=== PATIENT | female | born 1995 | race Caucasian/White ===

== ENCOUNTER 2019-11-28 16:34 | Emergency (ER) | payer OTHER, SELFPAY ==
[2019-11-28 16:51] VITALS: BP 128/91; PULSE 91; RESP 20; TEMP 37.1; O2SAT 100
[2019-11-28 17:06] LABS: Basophils Percent Auto 0.4 % (0.2-1.2); Eosinophils Absolute Auto 0.1 K/mm3 (0-0.3); Eosinophils Percent Auto 1.3 % (0-4.4); Hematocrit 39.1 % (37.0-47.0); Hemoglobin 12.5 g/dL (12.0-15.0); Immature Granulocyte Absolute 0.01 K/mm3 (0.00-0.031); Immature Granulocyte Percent A 0.1 % (0-0.5); Lymphocytes Absolute Auto 1.76 K/mm3 (0.9-3.2); Lymphocytes Percent Auto 24.5 % (18.3-44.2); Mean Corpuscular Hemoglobin 27.2 pg (26-34); Mean Corpuscular Volume 85.2 fl (80-100); Mean Platelet Volume 9.9 fl (7.4-10.4); Monocytes Absolute Auto 0.4 K/mm3 (0.1-0.6); Monocytes Percent Auto 5.7 % (2.6-8.5); Neutrophils Absolute Auto 4.9 K/mm3 (1.3-6.7); Platelet Count Result 263 k/mm3 (150-375); Red Blood Count 4.59 M/mm3 (4.2-5.4); Red Cell Distribution Width 13.4 % (11.5-14.5); White Blood Count 7.2 K/mm3 (4.5-10.0)
[2019-11-28 17:22] LABS: Alanine Aminotransferase 17 U/L (4-35); Alkaline Phosphatase 79 U/L (38-126); Aspartate Amino Transferase 24 U/L (14-36); Bilirubin,Total 0.1 mg/dL (0.2-1.3); Blood Urea Nitrogen 14 mg/dL (7-17); Calcium 8.7 mg/dL (8.4-10.2); Carbon Dioxide 22 mmol/L (22-30); Chloride 103 mmol/L (98-107); Estimated Glomerular Filt Rate > 60; Glucose 98 mg/dL (65-105); Lipase 100 U/L (23-300); Potassium 3.9 mmol/L (3.4-5.0); Sodium 139 mmol/L (137-145)
[2019-11-28 17:22] LABS: Add Urine Microscopic? YES; Appearance Urine Clear (Clear); Bilirubin Urine Negative (Negative); Blood Urine 1+ (Negative); Color Urine Straw (Yellow); Glucose Urine UA Negative (Negative); Ketones Urine Negative (Negative); Leukocyte Esterase Ur Trace LEU/UL (Negative); Nitrate Urine Negative (Negative); Protein Urine Negative (Negative); RBC Urine 0-2 /hpf (0-2); Specific Grav Ur 1.016 (1.001-1.035); Squamous Epithelial Cell Urine Moderate /hpf (Few); Urobilinogen Urine Negative mg/dL (<2.0); WBC Urine 0-3 /hpf
--- NOTE | 2019-11-28 20:30 | PC.NURSE ---
Pt up to intake desk stating she is going to leave due to wait time. Pt left ED with a steady gait.
== END 2019-11-28 20:30 | disposition left against medical advice (07) ==
LOC: ANHED 20:39
PROVIDERS: Emergency Provider General Practice; PCP Obstetrics & Gynecology
DX: R10.9 Unspecified abdominal pain (principal)
CPT/HCPCS: 36415; 80053; 81001; 81025; 83690; 85025; 99199

== ENCOUNTER 2019-11-30 20:50 | Emergency (ER) | payer OTHER, SELFPAY ==
[2019-11-30 21:23] VITALS: BP 129/90; PULSE 92; RESP 18; TEMP 36.3; O2SAT 99
[2019-11-30 21:24] LABS: Basophils Percent Auto 0.5 % (0.2-1.2); Eosinophils Absolute Auto 0.1 K/mm3 (0-0.3); Hematocrit 38.8 % (37.0-47.0); Hemoglobin 12.4 g/dL (12.0-15.0); Immature Granulocyte Absolute 0.02 K/mm3 (0.00-0.031); Immature Granulocyte Percent A 0.3 % (0-0.5); Lymphocytes Absolute Auto 2.01 K/mm3 (0.9-3.2); Lymphocytes Percent Auto 27.5 % (18.3-44.2); Mean Corpuscular Hemoglobin 27.3 pg (26-34); Mean Corpuscular Volume 85.3 fl (80-100); Mean Platelet Volume 9.9 fl (7.4-10.4); Monocytes Absolute Auto 0.4 K/mm3 (0.1-0.6); Neutrophils Absolute Auto 4.7 K/mm3 (1.3-6.7); Neutrophils Percent Auto 64.7 % (45.5-73.1); Platelet Count Result 269 k/mm3 (150-375); Red Blood Count 4.55 M/mm3 (4.2-5.4); Red Cell Distribution Width 13.2 % (11.5-14.5); White Blood Count 7.3 K/mm3 (4.5-10.0)
[2019-11-30 21:37] LABS: Alanine Aminotransferase 19 U/L (4-35); Albumin Level 4.2 g/dL (3.5-5.1); Alkaline Phosphatase 82 U/L (38-126); Aspartate Amino Transferase 25 U/L (14-36); Bilirubin,Total 0.2 mg/dL (0.2-1.3); Blood Urea Nitrogen 16 mg/dL (7-17); Carbon Dioxide 23 mmol/L (22-30); Chloride 104 mmol/L (98-107); Estimated Glomerular Filt Rate > 60; Glucose 108 mg/dL (65-105); Lipase 87 U/L (23-300); Potassium 3.9 mmol/L (3.4-5.0); Sodium 139 mmol/L (137-145)
[2019-11-30 21:58] LABS: Add Urine Microscopic? YES; Appearance Urine Clear (Clear); Bacteria Urine Trace /hpf; Bilirubin Urine Negative (Negative); Blood Urine 1+ (Negative); Color Urine Yellow (Yellow); Glucose Urine UA Negative (Negative); Ketones Urine Negative (Negative); Leukocyte Esterase Ur Negative LEU/UL (Negative); Mucus Urine Rare /lpf; Nitrate Urine Negative (Negative); Protein Urine Negative (Negative); Specific Grav Ur 1.016 (1.001-1.035); Squamous Epithelial Cell Urine Rare /hpf (Few); Urobilinogen Urine Negative mg/dL (<2.0); WBC Urine 0-3 /hpf
--- NOTE | 2019-11-30 22:16 | ED.ABDPAIN ---
HPI - Abdominal Pain General Chief Complaint: Abdominal Pain Stated Complaint: ABD PAIN Time Seen by Provider: 11/30/19 22:02 Source: patient and RN notes reviewed Mode of arrival: ambulatory Limitations: no limitations History of Present Illness HPI narrative: Pt is a 24 y/o female, who presents to the ED with c/o worsening lt lower ABD pain starting 3 days ago. She also reports intermittent low back pain over the past several days and vaginal discharge, but denies any nausea, vomiting, diarrhea, vaginal bleeding or discharge, fever, or chills. Pt currently denies any chance of being . MD elicited complaint: abdominal pain Pertinent past history: other (PID) Onset (ago): day(s) (3) Pain Consistency: other (worsening) Location: other (lt lower ABD) Associated symptoms: other (low back pain; vaginal discharge) Related Data Patient : No Home Medications Medication Instructions Recorded Confirmed cariprazine [Vraylar] 1.5 mg PO DAILY 11/30/19 fluoxetine [Prozac] 40 mg PO DAILY 11/30/19 lamotrigine 150 mg PO DAILY 11/30/19 levothyroxine 100 mcg PO DAILY 11/30/19 trazodone 150 mg PO HS 11/30/19 Allergies Allergy/AdvReac Type Severity Reaction Status Date / Time No Known Allergies Allergy Unknown Verified 11/30/19 21:27 No Known Allergies Allergy Unknown Uncoded 11/30/19 21:27 Review of Systems Review of Systems: All systems reviewed & are unremarkable except as noted in HPI and below Constitutional: Constitutional: Denies chills and Denies fever(s) Gastrointestinal: Gastrointestinal: Reports abdominal pain (lt lower ABD pain), Denies diarrhea, Denies nausea and Denies vomiting Genitourinary: Genitourinary: Denies abnormal vaginal bleeding and Reports vaginal discharge Musculoskeletal: Musculoskeletal: Reports back pain (low back pain) [facility] Past Medical History Medical History (Updated 11/30/19 @ 22:34 by Yon Dahl MD) Anxiety Depression DVT (deep venous thrombosis) Hypothyroidism PID (pelvic inflammatory disease) Surgical History Surgical History Hx of appendectomy Family History Family History (Updated 02/09/17 @ 14:53 by DOCTOR UNKNOWN) Other Family history of seizure disorder Social History Social History Smoking status: Never smoker Alcohol intake: never Gender identity (if verbalized by the patient): Female Exam Const: General: cooperative, healthy appearing, comfortable, no acute distress, well developed, alert and awake; No confusion Nutritional Appearance: obese Orientation/consciousness: oriented to person, oriented to place, oriented to time, patient oriented x3 and No confusion Limitations: no limitations HENMT: Head: normal to inspection, normocephalic and atraumatic Resp: Effort & Inspection: normal respiratory effort, able to speak in complete sentences, no respiratory distress and not tachypneic Auscultation: clear to auscultation bilaterally, no crackles, no rales, no rhonchi and no wheezes Cardio: Rate: regular rate Rhythm: regular rhythm GI: Inspection: normal to inspection GI Palp: No abdominal tenderness, Yes Soft to palpation, No Tenderness to palpation present (GI), No Guarding due to palpation present (GI), No Rigid due to palpation and No Rebound tenderness present Auscultation: normal bowel sounds : General: Yes no CVA tenderness Back/Spine/Pelvis: Back: no CVA tenderness Skin: General skin exam: normal color, no rashes or lesions noted, elasticity normal and turgor normal Neuro: General: oriented to person, oriented to place, oriented to time, patient oriented x3, tone normal, moves all extremities, Normal light touch and pain sensation, no meningeal signs, no focal motor deficits, CN's II-XI intact bilaterally and No confusion Cranial nerves: Yes Equal, round and reactive pupils present Speech: No Abnormal speech prese
[2019-11-30] MEDS: KETOROLAC 30 MG/ML VIAL (*BKC) IV PUSH (23:07)
[2019-11-30 23:48] VITALS: BP 121/78; PULSE 71; RESP 12; O2SAT 100
== END 2019-11-30 23:35 | disposition home or self-care (01) ==
PROVIDERS: Emergency Medicine; Emergency Provider Emergency Medicine; PCP Obstetrics & Gynecology
DX: R10.32 Left lower quadrant pain (principal); F41.9 Anxiety disorder, unspecified; F32.9 Major depressive disorder, single episode, unspecified; Z87.891 Personal history of nicotine dependence; E03.9 Hypothyroidism, unspecified
CPT/HCPCS: 36415; 80053; 81001; 81025; 83690; 85025; 96374; 99284; J1885

== ENCOUNTER 2020-02-10 21:12 | Emergency (ER) | payer OTHER, SELFPAY ==
--- NOTE | ~2020-02-10 | CT_ITS ---
EXAMINATION: CT abdomen pelvis w con DATE: 02/10/2020 23:42 INDICATION: Lower abdominal pain TECHNIQUE: Computed tomography (CT) of the abdomen and pelvis was performed with 100 cc Omnipaque 350 intravenous contrast. The dose-length product was 1315.58 mGy-cm. Automated exposure control and ite rative reconstruction technique were employed. COMPARISON: CT dated 07/07/2019 FINDINGS: Lung bases are unremarkable. No significant pleural or pericardial effusion. Heart size is normal. No significant vascular abnormality. No lymphadenopathy. Status post cholecystectomy. The liver, spleen, pancreas, adrenal glands and kidneys are unremarkable . Bowel pattern is nonobstructive. No evidence for appendicitis or diverticulitis. No abnormal pelvic m asses or fluid collections. Small fat-containing umbilical hernia. There are hypodense masses of the uterus, possibly uterine fibroids. No acute osseous abnormality. IMPRESSION: 1. No acute abdominal abnormality. Reviewed, dictated and finalized at location A.
[2020-02-10 21:13] VITALS: BP 148/81; PULSE 98; RESP 20; TEMP 36.4; O2SAT 99
[2020-02-10 21:42] LABS: Basophils Percent Auto 0.2 % (0.2-1.2); Hematocrit 39.6 % (37.0-47.0); Hemoglobin 12.7 g/dL (12.0-15.0); Immature Granulocyte Absolute 0.08 K/mm3 (0.00-0.031); Immature Granulocyte Percent A 0.6 % (0-0.5); Lymphocytes Absolute Auto 2.67 K/mm3 (0.9-3.2); Lymphocytes Percent Auto 20.7 % (18.3-44.2); Mean Corpuscular HGB Conc 32.1 g/dl (32-36); Mean Corpuscular Hemoglobin 27.4 pg (26-34); Mean Corpuscular Volume 85.5 fl (80-100); Monocytes Absolute Auto 0.9 K/mm3 (0.1-0.6); Monocytes Percent Auto 6.9 % (2.6-8.5); Neutrophils Absolute Auto 9.2 K/mm3 (1.3-6.7); Neutrophils Percent Auto 71.6 % (45.5-73.1); Platelet Count Result 328 k/mm3 (150-375); Red Blood Count 4.63 M/mm3 (4.2-5.4); Red Cell Distribution Width 13.9 % (11.5-14.5); White Blood Count 12.9 K/mm3 (4.5-10.0)
[2020-02-10 21:46] LABS: Add Urine Microscopic? YES; Appearance Urine Clear (Clear); Bilirubin Urine Negative (Negative); Blood Urine 1+ (Negative); Color Urine Straw (Yellow); Glucose Urine UA Negative (Negative); Ketones Urine Negative (Negative); Leukocyte Esterase Ur Trace LEU/UL (Negative); Mucus Urine Rare /lpf; Nitrate Urine Negative (Negative); Protein Urine Negative (Negative); Specific Grav Ur 1.019 (1.001-1.035); Squamous Epithelial Cell Urine Many /hpf (Few)
[2020-02-10 21:53] LABS: Alanine Aminotransferase 20 U/L (4-35); Albumin Level 4.2 g/dL (3.5-5.1); Alkaline Phosphatase 87 U/L (38-126); Aspartate Amino Transferase 24 U/L (14-36); Bilirubin,Total 0.3 mg/dL (0.2-1.3); Blood Urea Nitrogen 16 mg/dL (7-17); Calcium 8.4 mg/dL (8.4-10.2); Carbon Dioxide 24 mmol/L (22-30); Chloride 104 mmol/L (98-107); Estimated Glomerular Filt Rate > 60; Glucose 94 mg/dL (65-105); Lipase 123 U/L (23-300); Potassium 4.1 mmol/L (3.4-5.0); Sodium 136 mmol/L (137-145)
--- NOTE | 2020-02-10 22:30 | ED.ABDPAIN ---
HPI - Abdominal Pain General Chief Complaint: Abdominal Pain Stated Complaint: lower abd pain Time Seen by Provider: 02/10/20 21:32 Source: patient Mode of arrival: ambulatory Limitations: no limitations History of Present Illness HPI narrative: Patient is a 24-year-old female who presents to the emergency department complaint of lower abdominal pain. Patient reports onset of pain approximately 3 weeks ago. Patient locates the pain in the lower abdomen with a preference towards the left lower quadrant. Patient was seen in the emergency department at [place] and told she had a UTI and treated with antibiotics. Patient has continued to have pain despite completing antibiotics. Patient has had tele-health visits with her primary care physician Dr. Miller and her proof coins inspector Dr. Swanson. She had been treated with a course of steroids, though it is not quite clear to me what the diagnosis indicating steroids was. Patient is frustrated because she feels as though no diagnosis has been achieved and she is still symptomatic. Patient complains of dysuria and hematuria as well. MD elicited complaint: abdominal pain Onset (ago): week(s) (3) Location: LLQ and suprapubic Relieving factors: nothing Associated symptoms: dysuria and hematuria Related Data Home Medications Medication Instructions Recorded Confirmed cariprazine [Vraylar] 1.5 mg PO DAILY 11/30/19 fluoxetine [Prozac] 40 mg PO DAILY 11/30/19 lamotrigine 150 mg PO DAILY 11/30/19 levothyroxine 100 mcg PO DAILY 11/30/19 trazodone 150 mg PO HS 11/30/19 Allergies Allergy/AdvReac Type Severity Reaction Status Date / Time No Known Allergies Allergy Unknown Verified 11/30/19 21:27 No Known Allergies Allergy Unknown Uncoded 11/30/19 21:27 Review of Systems Review of Systems: All systems reviewed & are unremarkable except as noted in HPI and below Constitutional: Constitutional: Denies chills and Denies fever(s) Gastrointestinal: Gastrointestinal: Reports abdominal pain Genitourinary: Genitourinary: Reports hematuria and Reports dysuria PMF Past Medical History Medical History (Updated 02/11/20 @ 01:46 by Kandis Orosco MD) Anxiety Depression DVT (deep venous thrombosis) Hypothyroidism PID (pelvic inflammatory disease) Surgical History Surgical History (Updated 02/10/20 @ 22:32 by Kandis Orosco MD) History of cataract surgery History of cholecystectomy History of tubal ligation Hx of appendectomy Family History Family History (Updated 02/09/17 @ 14:53 by DOCTOR UNKNOWN) Other Family history of seizure disorder Social History Social History (Updated 02/10/20 @ 22:32 by Kandis Orosco MD) Smoking status: Former smoker Gender identity (if verbalized by the patient): Female Exam Const: General: cooperative, no acute distress and alert Nutritional Appearance: obese Orientation/consciousness: patient oriented x3 Limitations: no limitations Resp: Effort & Inspection: normal respiratory effort Auscultation: clear to auscultation bilaterally Cardio: Rate: regular rate Rhythm: regular rhythm GI: GI Palp: Yes Soft to palpation and Yes Tenderness to palpation present (GI) (Suprapubic and left lower quadrant) Auscultation: normal bowel sounds Back/Spine/Pelvis: Back: no CVA tenderness Skin: General skin exam: normal color Neuro: General: patient oriented x3 Cognition (Neuro): normal cognition Speech: normal speech Extrem: General: normal to inspection, full ROM and no clubbing, cyanosis or edema Psych: Mental Status: mental status grossly normal Affect: normal affect Attitude: cooperative Course Course Emergency Course: Testing in the emergency department unremarkable for any cause of patient's pain. Vital signs are stable and patient is very comfortable in appearance. Symptoms have been going on for a couple of weeks and patient is stable for ongoing outpatient management at this time. Advised import
[2020-02-10] MEDS: KETOROLAC 30 MG/ML VIAL (*BKC) IV PUSH (23:45)
[2020-02-10 23:46] VITALS: BP 126/91; PULSE 76; RESP 19; O2SAT 97
[2020-02-11 00:50] VITALS: BP 124/87; PULSE 75; RESP 17; O2SAT 96
[2020-02-11] MEDS: ACETAMINOPHEN 500 MG TABLET 1000 MG PO (01:26)
[2020-02-11 02:00] VITALS: BP 127/88; PULSE 88; RESP 17; O2SAT 97
== END 2020-02-11 02:00 | disposition home or self-care (01) ==
PROVIDERS: Emergency Provider Emergency Medicine; PCP Obstetrics & Gynecology
DX: R10.30 Lower abdominal pain, unspecified (principal); F41.9 Anxiety disorder, unspecified; F32.9 Major depressive disorder, single episode, unspecified; Z86.718 Personal history of other venous thrombosis and embolism; E03.9 Hypothyroidism, unspecified; Z98.49 Cataract extraction status, unspecified eye; Z87.891 Personal history of nicotine dependence
CPT/HCPCS: 36415; 74177; 80053; 81001; 81025; 83690; 85025; 96374; 99284; A9270; J1885; Q9967

== ENCOUNTER 2023-07-12 13:42 | Emergency (ER) | payer OTHER, SELFPAY ==
--- NOTE | ~2023-07-12 | XR_ITS ---
EXAMINATION: XR chest 1V portable Exam Date/Time: 07/12/2023 15:20 CDT HISTORY: productive cough Comparison: 10/13/2018. RESULT: Lines, tubes, and devices: None. Lungs and pleura: Clear. Cardiomediastinal silhouette: Stable. Other: No acute osseous or upper abdominal finding. IMPRESSION: No acute cardiopulmonary process. Reviewed, dictated and finalized at location K.
[2023-07-12 13:52] VITALS: BP 145/82; PULSE 77; RESP 18; TEMP 36.8; O2SAT 100
[2023-07-12 14:24] VITALS: O2SAT 100
--- NOTE | 2023-07-12 15:19 | ED.GENADULT ---
[facility] - General Adult General Chief complaint: Upper Respiratory Infection Stated complaint: Multiple Complaints Time Seen by Provider: 07/12/23 14:51 Source: patient Mode of arrival: ambulatory Limitations: no limitations History of Present Illness HPI narrative: This is a 27-year-old female who presents to the ED with chief complaint of URI symptoms for the past 2 days. Reports cough, congestion, runny nose, sore throat and ear fullness bilaterally. Reports shortness of breath as well. She states she has a history of asthma and feels like this may be flared up as well. Reports chest tightness only occurring when she coughs. Reports her cough has been productive with over the last day. Denies fevers, chills, abdominal pain, nausea, vomiting, urinary problems. Related Data Home Medications Medication Instructions Recorded Confirmed cariprazine 1.5 mg capsule 1.5 mg PO DAILY 11/30/19 (Vraylar) fluoxetine 40 mg capsule (Prozac) 40 mg PO DAILY 11/30/19 lamotrigine 150 mg tablet 150 mg PO DAILY 11/30/19 levothyroxine 100 mcg capsule 100 mcg PO DAILY 11/30/19 trazodone 150 mg tablet 150 mg PO HS 11/30/19 Allergies Allergy/AdvReac Type Severity Reaction Status Date / Time No Known Allergies Allergy Unknown Verified 07/12/23 13:55 Review of Systems Review of Systems: All systems as dictated in [facility] Past Medical History Medical History (Updated 07/12/23 @ 17:01 by Pee Darden PA-C) Anxiety Depression DVT (deep venous thrombosis) Hypothyroidism PID (pelvic inflammatory disease) Surgical History Surgical History (Updated 03/31/22 @ 16:05 by Nikita Gallegos) History of cataract surgery History of cholecystectomy History of tubal ligation Hx of appendectomy Family History Family History (System 03/31/22 @ 16:05 by Nikita Gallegos) Other Family history of seizure disorder Social History Social History (System 03/31/22 @ 16:05 by Nikita Gallegos) Smoking status: Former smoker Gender identity (if verbalized by the patient): Female Exam Narrative: GENERAL: Well-appearing, well-nourished, and in no acute distress. HEAD: Normocephalic, atraumatic. EYES: PERRLA and EOMI. ENT: Posterior oropharynx erythema present. Bilateral tympanic effusion with no redness or injection. No bulging. Nares clear, no rhinorrhea or epistaxis. Mucous membranes moist. Oropharynx without tonsillar hypertrophy exudate or other lesions. NECK: Supple. No adenopathy or masses. CHEST: No respiratory distress. Mild expiratory diffuse wheezing. Talks in full sentences. Saturating 100% on room air. HEART: Regular rate and rhythm. No murmur heard. Normal peripheral pulses. ABDOMEN: Soft, nontender, nondistended, normal active bowel sounds. MSK: Normal range of motion. No edema. SKIN: Warm, dry, no rash. NEURO: Alert and oriented x3. No focal deficits. PSYCH: Normal mood and affect. Course Course Emergency Course: Reevaluation 1700: Wheezing improved. She feels symptomatically improved as well. She would like to go home. Vital Signs Vital signs: Vital Signs Temperature 98.3 F 07/12/23 13:52 Pulse Rate 77 07/12/23 13:52 Respiratory Rate 18 07/12/23 13:52 Blood Pressure 145/82 H 07/12/23 13:52 Pulse Oximetry 100 07/12/23 13:52 Oxygen Delivery Room Air 07/12/23 13:52 Temperature 98.3 F 07/12/23 13:52 Pulse Rate 100 07/12/23 17:00 Respiratory Rate 20 07/12/23 17:00 Blood Pressure 145/82 H 07/12/23 13:52 Pulse Oximetry 100 07/12/23 14:24 Oxygen Delivery Room Air 07/12/23 14:24 Medical Decision Making [facility] Narrative Medical decision making narrative: This is a 27-year-old female who presents to the ED with chief complaint of URI symptoms for the past several days. Vitals are normal. Exam is revealing of posterior oropharynx erythema and tympanic membrane effusions. She has diffuse wheezes as well. Otherwise exam is benign. She has history of DVT
[2023-07-12] MEDS: ALBUTEROL SULFATE NEB 2.5 MG/3 ML INH 10 MG INHALATION (15:28)
[2023-07-12] MEDS: IPRATROPIUM BR 0.02% INH SOLN 0.5 MG/2.5 ML VIAL 1 MG INHALATION (15:29)
[2023-07-12 15:33] VITALS: PULSE 69; RESP 20
[2023-07-12 16:33] LABS: Influenza A QL RT-PCR Negative (Negative); Influenza B QL RT-PCR Negative (Negative); RSV RNA, RT-PCR Negative (Negative); SARS-CoV-2 RNA PCR Negative (Negative)
[2023-07-12 17:00] VITALS: PULSE 100; RESP 20
== END 2023-07-12 17:12 | disposition home or self-care (01) ==
PROVIDERS: Emergency Provider Physician Assistant; PCP Internal Medicine
DX: J40 Bronchitis, not specified as acute or chronic (principal); J06.9 Acute upper respiratory infection, unspecified; Z20.822 Contact with and (suspected) exposure to COVID-19; E03.9 Hypothyroidism, unspecified; F41.9 Anxiety disorder, unspecified; F32.A Depression, unspecified; Z98.49 Cataract extraction status, unspecified eye; Z86.718 Personal history of other venous thrombosis and embolism; Z87.891 Personal history of nicotine dependence; Z90.49 Acquired absence of other specified parts of digestive tract
CPT/HCPCS: 71045; 87637; 94640; 99283

== ENCOUNTER 2024-05-08 14:39 | Emergency (ER) | payer OTHER, SELFPAY ==
[2024-05-08 15:00] VITALS: BP 140/99; PULSE 84; RESP 18; TEMP 36.9; O2SAT 100
--- NOTE | 2024-05-08 15:13 | ED.WOUNDLAC ---
HPI - Wound/Laceration General Chief Complaint: Extremity Injury, Upper Stated Complaint: left wrist laceration Time Seen by Provider: 05/08/24 15:12 Source: patient Mode of arrival: ambulatory Limitations: no limitations History of Present Illness HPI narrative: Chandrika is a 28-year-old female patient presenting to the emergency room today with complaints of a laceration to left wrist that she cut on a can when she was opening up a can. She states that her tetanus is not up today. Bleeding is controlled. Related Data Home Medications Medication Instructions Recorded Confirmed cariprazine 1.5 mg capsule 1.5 mg PO DAILY 11/30/19 (Vraylar) fluoxetine 40 mg capsule (Prozac) 40 mg PO DAILY 11/30/19 lamotrigine 150 mg tablet 150 mg PO DAILY 11/30/19 levothyroxine 100 mcg capsule 100 mcg PO DAILY 11/30/19 trazodone 150 mg tablet 150 mg PO HS 11/30/19 Allergies Allergy/AdvReac Type Severity Reaction Status Date / Time No Known Allergies Allergy Unknown Verified 05/08/24 15:03 Review of Systems Review of Systems: Pertinent positives per HPI. Patient denies any fever, chills, rash, headache, visual changes, dizziness, cough, runny nose, sore throat, shortness of breath, chest pain, palpitations, nausea, vomiting, diarrhea, constipation, abdominal pain, or any urinary issues. [facility] Past Medical History Medical History Anxiety Depression DVT (deep venous thrombosis) Hypothyroidism PID (pelvic inflammatory disease) Surgical History Surgical History History of cataract surgery History of cholecystectomy History of tubal ligation Hx of appendectomy Family History Family History Other Family history of seizure disorder Social History Social History Smoking status: Former smoker Gender identity (if verbalized by the patient): Female Comments At the time of my signature, I reviewed and agree with the nursing past medical, surgical, social, and family history. There is no relevant family history pertinent to the patient complaint. Exam Narrative: General: Well-developed, well nourished, in no apparent distress Head: Normocephalic, atraumatic. Cardio: Regular rate and rhythm, s1 and s2 normal, no murmur appreciated. Resp: Clear to auscultation bilaterally, no rhonchi, rales, wheezing or rubs. Integumentary: [place], warm, and dry, mild gaping 1.5 cm laceration to the left volar wrist Course Course Emergency Course: Portions of this record may have been created with voice recognition software. Vital Signs Vital signs: Vital Signs Temperature 36.9 C 05/08/24 15:00 Pulse Rate 84 05/08/24 15:00 Respiratory Rate 18 05/08/24 15:00 Blood Pressure 140/99 H 05/08/24 15:00 Pulse Oximetry 100 05/08/24 15:00 Oxygen Delivery Room Air 05/08/24 15:00 Temperature 36.9 C 05/08/24 15:00 Pulse Rate 84 05/08/24 15:00 Respiratory Rate 18 05/08/24 15:00 Blood Pressure 140/99 H 05/08/24 15:00 Pulse Oximetry 100 05/08/24 15:00 Oxygen Delivery Room Air 05/08/24 15:00 Vital signs reviewed Procedures Laceration Laceration 1: Date: 05/08/24 Site: other (left wrist) Side (If applicable): left Size (cm): 1.5 Description: linear Depth: simple, single layer Local Anesthetic: lidocaine 1% Amount of anesthesia used (mL): 1 Pre-repair: wound explored and irrigated ====== Skin Level ====== Skin layer closed with: nylon Size (cm): 5-0 Number of sutures: 3 Technique: simple, interrupted ====== Subcutaneous Layer ====== ====== Muscle Layer ====== ====== Tendon Layer ====== Dressing: Verbal consent obtained for jonathan
[2024-05-08] MEDS: TETANUS,DIPHTHERIA,AC PERTUSSIS ADULT (0.5 ML) BOOSTRIX IM (15:59)
== END 2024-05-08 16:16 | disposition home or self-care (01) ==
LOC: ANHED 16:09
PROVIDERS: Emergency Provider Nurse Practitioner Family; PCP Internal Medicine
DX: S61.512A Laceration without foreign body of left wrist, initial encounter (principal); Z23 Encounter for immunization; E03.9 Hypothyroidism, unspecified; F41.9 Anxiety disorder, unspecified; F32.A Depression, unspecified; Z86.718 Personal history of other venous thrombosis and embolism; Z87.891 Personal history of nicotine dependence; Z90.49 Acquired absence of other specified parts of digestive tract; Z98.49 Cataract extraction status, unspecified eye; Z79.899 Other long term (current) drug therapy; W26.8XXA Contact with other sharp object(s), not elsewhere classified, initial encounter
CPT/HCPCS: 12001; 90471; 90715; 99283

== ENCOUNTER 2025-04-14 13:19 | Emergency (ER) | payer SELFPAY ==
[2025-04-14] VITALS (7 sets, daily range): BP systolic 108–145; BP diastolic 64–110; PULSE 80–130; RESP 14–18; TEMP 36.5–36.6; O2SAT 97–100
--- NOTE | ~2025-04-14 | CT_ITS ---
CT brain wo con Ordering provider: Linden Pineda MD History: 29 years Female with . Dizziness . Comparison: July 13, 2019 Technique: CT of the head without contrast. Radiation reduction technique utilized.The dose-length pr oduct was 605.33 mGy-cm. FINDINGS: BRAIN PARENCHYMA AND CSF SPACES: No midline shift, mass effect or hemorrhage. The brain parenchyma a nd CSF spaces are otherwise normal. VISUALIZED PARANASAL SINUSES: Bilateral maxillary, sphenoid and ethmoid sinus disease. Right nasal se ptal deviation. MASTOIDS: Well aerated. BONES: The bones appear intact. SOFT TISSUES: Visualized nasopharynx is normal. Superficial soft tissues are normal. IMPRESSION: No acute intracranial findings. Reviewed, dictated and finalized at location A.
--- NOTE | ~2025-04-14 | XR_ITS ---
XR chest 1V portable Ordering provider: Linden Pineda MD History: 29 years Female with . Coughing, sinus congestion, wheezing . Comparison: None. FINDINGS: MEDIASTINUM: The cardiac silhouette is not enlarged. LUNGS: No infiltrates, effusions or pneumothorax. Prominent bronchovascular markings bilaterally which may indicate bronchitis. Vague opacity in the ri ght upper lobe. OTHER: No free air under the diaphragm. IMPRESSION: Possible bronchitis. Vague opacity in the right upper lobe which may be focal pneumonia versus secretions filled bronchi. Follow-up advised. Reviewed, dictated and finalized at location A. IMPRESSION: Possible bronchitis. Vague opacity in the right upper lobe which may be focal pneumonia versus secre tions filled bronchi. Follow-up advised.
--- OUTSIDE RECORDS SUMMARY | 2025-04-14 13:22 | XMS_ITS | Continuity of Care Document ---
Author Organization [facility] Address [address] [place] [address] [address] [place] [address] Phone Care Team Providers Care Elevated Work Platform Operator Name Role Phone Roxanna Nolan Unavailable Unavailable Advance Directives Directive Yes / No Effective Date File Name No Information Encounters Encounter Description Practice Location Reason(s) For Visit Diagnoses Date Provider Providers Copied on Encounter [facility], [address] [place] [address] [address], [place], [place], [id number], [place] tel:[phone] [facility] [place] No Information [phone] , [address], [place], [address], [place]. tel:[phone] Family History Family Member Type Diagnosis Age At Onset No Information Payers Payer name Insurance type Covered republican ID Authoriza tion(s) Medicaid [facility] [id number] Social History Type Description Quantity Date Captured Comments Sex Female Smoking Status No Information Chief Complaint And Reason For Visit No Information Reason For Referral Reason For Referral No Information History Of Present Illness Encounter Date Complaint History Of Prese nt Illness No Information Functional Status Date Functional Assessmen t No Information Instructions Date Instruction Additional Infor mation No Information Assessments Type Assessment Date No Information Patient Care Teams Name Effective Dates (start - stop) Status Members No Information
--- OUTSIDE RECORDS SUMMARY | 2025-04-14 13:22 | XMS_ITS | Clinical Summary ---
Author Organization [facility] Address [address] [place] [address] Care Team Providers Care Special Collections Librarian Name Role Phone Unavailable Primary Care Provider Unavailabl e Immunizations Immunization Administration Dates Next Due Covid-19, Mrna, Lnp-s, Pf, 30 Mcg/0.3 Ml Dose (P fizer) 10/31/2021 Social History Tobacco Use Types Packs/Day Years Used Date Smoking Tobacco: Never Assessed Comments Unknown Sex and Gender Information Value Date Recorded Sex Assigned at Not on file Legal Sex Female 7:45 AM CDT Gender Identity Not on file Sexual Orientation Not on file Plan of Treatment Health Maintenance Due Date Last Done Comments Hepatitis C Virus (HCV) Screening 1995 Human Papillomavirus (HPV) Immunization (3 - 2-dose series) 08/19/2008 04/20/2008, 02/17/2008 SARS-COV-2 Immunization ( season) 2024 10/31/2021, 02/17/2021, 01/27/2021 Influenza Immunization (Season Ended) 2025 10/16/2018, 07/31/2008 Respiratory Syncytial Virus (RSV) Immunization (Adult) (1 - 1-dose 75+ series) 2069 Hepatitis B Immunization Completed 995, 1994, 1994 DTaP/Tdap/Td Immunization Discontinued 2009, 06/01/2000, 01/19/1996, Additional history exists TdaP Immunization Completed 08/01/2010 Meningococcal Immunization (ACWY) Aged Out No longer eligible based on patient's age to complete this topic Pneumococcal Immunization Combined Aged Out No longer eligible based on patient's age to complete this topic Rotavirus Immunization Aged Out No lo nger eligible based on patient's age to complete this topic
[2025-04-14 13:59] LABS: Hematocrit 36.1 % (37.0-47.0); Hemoglobin 11.7 g/dL (12.0-15.0); Immature Granulocyte Percent A 0.4 % (0-0.5); Lymphocytes Absolute Auto 1.12 K/mm3 (0.9-3.2); Mean Corpuscular HGB Conc 32.4 g/dl (32-36); Mean Corpuscular Hemoglobin 27.6 pg (26-34); Mean Corpuscular Volume 85.1 fl (80-100); Nucleated Red Blood Cells Absolute Auto 0.000 K/mm3 (0.0-0.012); Nucleated Red Blood Cells Perc 0.0 % (0.0-0.2); Platelet Count Result 243 k/mm3 (150-375); Red Blood Count 4.24 M/mm3 (4.2-5.4); White Blood Count 8.3 K/mm3 (4.5-10.0)
[2025-04-14 14:00] LABS: BEDSIDEPREGUCG Negative (Negative)
[2025-04-14] MEDS: SODIUM CHLORIDE 0.9% IV 1,000 ML 999 ML (14:00)
--- OUTSIDE RECORDS SUMMARY | 2025-04-14 14:02 | XMS_ITS | Clinical Summary ---
Author Organization [facility] Address [address] [place] [address] Care Team Providers Care Telegraph Plant Maintainer Name Role Phone Unavailable Primary Care Provider [...]
--- OUTSIDE RECORDS SUMMARY | 2025-04-14 14:02 | XMS_ITS | Continuity of Care Document ---
Author Organization [facility] Address [address] [place] [address] [address] [place] [address] Phone Care Team Providers Care Marine Plumber Name Role Phone Roxanna Nolan Unavailable Unavailable Advance Directives Directive Yes / No Effective Date File Name No Information Encounters Encounter Description Practice Location Reason(s) For Visit Diagnoses Date Provider Providers Copied on Encounter [facility], [address] [place] [address] [address], [place], [place], [id number], [place] tel:[phone] [facility] [place] No Information 0 [phone] [place] , [address], [place], [address], [place]. tel:[phone] Family History Family Member Type Diagnosis Age At Onset No Information Payers Payer name Insurance type Covered democrat ID Authoriza tion(s) Medicaid [facility] [id number] Social History Type Description Quantity Date Captured [...]
[2025-04-14 14:04] LABS: Add Urine Microscopic? YES; Appearance Urine Clear (Clear); Glucose Urine UA Negative (Negative); Leukocyte Esterase Ur Negative LEU/UL (Negative); Nitrate Urine Negative (Negative); Non Pathogenic Casts 0-2; Specific Grav Ur 1.025 (1.001-1.035)
[2025-04-14 14:09] LABS: Alanine Aminotransferase 27 U/L (6-35); Albumin Level 4.0 g/dL (3.5-5.1); Alkaline Phosphatase 79 U/L (38-126); Anion Gap 8 mmol/L (4-12); Aspartate Amino Transferase 34 U/L (14-36); Bilirubin,Total 0.3 mg/dL (0.2-1.3); Blood Urea Nitrogen 10 mg/dL (7-17); Calcium 8.6 mg/dL (8.4-10.2); Carbon Dioxide 23 mmol/L (22-30); Chloride 105 mmol/L (98-107); Estimated Glomerular Filt Rate > 60; Glucose 105 mg/dL (65-110); Potassium 4.0 mmol/L (3.4-5.0); Sodium 136 mmol/L (137-145); Total Protein 7.6 g/dL (6.3-8.2)
[2025-04-14 14:36] LABS: Influenza A QL RT-PCR Negative (Negative); Influenza B QL RT-PCR Negative (Negative); RSV RNA, RT-PCR Negative (Negative); SARS-CoV-2 RNA PCR Negative (Negative)
--- NOTE | 2025-04-14 14:47 | ED.DIZZY ---
HPI - Dizziness General Chief Complaint: Dizziness Stated Complaint: blurry vision, nausea Time Seen by Provider: 04/14/25 13:46 Source: patient History of Present Illness HPI Narrative: 29 years old white female drove herself to the emergency room complaining of sudden onset of dizziness everything was spinning moving, associated with nausea and vomiting. Patient is telling me that she been having nasal and postnasal discharge for a while, headache, productive cough and palpitation over the last few days. History of depression and anxiety, does not smoke, drinks occasionally, uses marijuana occasionally. Patient is telling me that she have chronic lower back pain slightly worse than before. She denies any chest pain or shortness of breath. Related Data Home Medications ?Medication ?Instructions ?Recorded ?Confirmed ?Last Taken ?Type cariprazine 1.5 mg capsule 1.5 mg PO DAILY 11/30/19 Unknown History (Vraylar) fluoxetine 40 mg capsule (Prozac) 40 mg PO DAILY 11/30/19 Unknown History lamotrigine 150 mg tablet 150 mg PO DAILY 11/30/19 Unknown History levothyroxine 100 mcg capsule 100 mcg PO DAILY 11/30/19 Unknown History trazodone 150 mg tablet 150 mg PO HS 11/30/19 Unknown History Allergies Allergy/AdvReac Type Severity Reaction Status Date / Time No Known Allergies Allergy Unknown Verified 05/08/24 15:03 Review of Systems Review of Systems: All systems reviewed & are unremarkable except as noted in HPI and below PMFSH Past Medical History Medical History Anxiety Depression PID (pelvic inflammatory disease) Hypothyroidism DVT (deep venous thrombosis) Surgical History Surgical History History of cataract surgery History of tubal ligation History of cholecystectomy Hx of appendectomy Family History Family History Other Family history of seizure disorder Social History Social History Smoking status: Former smoker Gender identity (if verbalized by the patient): Female Exam Narrative: General appearance: Well-developed, well-nourished Skin: Normal color Head: Normocephalic, nontraumatic Eyes: Clear conjunctiva ENT: Oropharynx normal, ears normal, nose normal Neck: Supple, nontender Chest and respiratory: Airway patent, no respiratory distress, no accessory muscle use Heart: Regular rate/rhythm Abdomen: Soft, nontender, no organomegaly, quiet bowel sounds Vascular: Normal peripheral pulses, normal capillary refill. Musculoskeletal: Normal range of motion, nontender back Neurologic: Alert and oriented ?3, SENIOR BI ARCHITECT is normal as tested, no gross motor deficit Course Vital Signs Vital signs: Vital Signs Temperature 36.6 C 04/14/25 14:04 Pulse Rate 130 H 04/14/25 14:04 Respiratory Rate 16 04/14/25 14:04 Blood Pressure 136/103 H 04/14/25 14:04 Pulse Oximetry 100 04/14/25 14:04 Oxygen Delivery Room Air 04/14/25 14:04 Temperature 36.6 C 04/14/25 17:34 Pulse Rate 84 04/14/25 17:34 Respiratory Rate 16 04/14/25 17:34 Blood Pressure 108/64 04/14/25 17:34 Pulse Oximetry 98 04/14/25 17:34 Oxygen Delivery Room Air 04/14/25 14:04 MDM - Dizziness MDM Narrative Medical decision making narrative: Patient came with dizziness Vital signs showing blood pressure 136/103, heart rate 130 otherwise within normal limit Physical examination showing anxious stressed patient, with diffuse tenderness at the lower back Differential diagnosis include benign positional vertigo, anxiety like symptoms, upper respiratory viral infection, electrolyte imbalance, dehydration Blood workup today includes CBC, CMP, showed no acute abnormality Patient tested negative for COVID flu RSV Urinalysis showed no evidence of infection Chest x-ray showed possible pneumonia CT head without contrast showed no acute abnormality Diagnosis vertigo, pneumonia Discharged on Antivert, Zofran and amoxicillin The pt was discharged to home.the pt,s condition upon discharge was fair,education was provided to the pt in reference to the final impression,discharge study results,treatment,prognosis and need for follow up . Differential Diagnosis Differential diagnosis: Likely other (As above) Medical Records Attestation: I reviewed the patient's medical records. Lab Data Attestation: I reviewed the patient's lab results. 04/14/25 13:51 04/14/25 13:51 Labs: Lab Results 04/14/25 04/14/25 Range/Units 13:51 13:58 WBC 8.3 (4.5-10.0) K/mm3 RBC 4.24 (4.2-5.4) M/mm3 Hgb 11.7 L (12.0-15.0) g/dL Hct 36.1 L (37.0-47.0) % MCV 85.1 (80-100) fl MCH 27.6 (26-34) pg MCHC 32.4 (32-36) g/dl RDW 13.9 (11.5-14.5) % Plt Count 243 (150-375) k/mm3 MPV 10.0 (7.4-10.4) fl Immature Gran % (Auto) 0.4 (0-0.5) % Neut % (Auto) 78.7 H (45.5-73.1) % Lymph % (Auto) 13.5 L (18.3-44.2) % [place] % (Auto) 5.9 (2.6-8.5) % Eos % (Auto) 1.1 (0-4.4) % Baso % (Auto) 0.4 (0.2-1.2) % Lymph # (Auto) 1.12 (0.9-3.2) K/mm3 [place] # (Auto) 0.5 (0.1-0.6) K/mm3 Eos # (Auto) 0.1 (0-0.3) K/mm3 Baso # (Auto) 0.0 (0.0-0.1) K/mm3 Abs Immat Gran (auto) 0.03 (0.00-0.031) K/mm3 Absolute Neuts (auto) 6.6 (1.3-6.7) K/mm3 Absolute Nucleated RBC 0.000 (0.0-0.012) K/mm3 Nucleated RBC % 0.0 (0.0-0.2) % Sodium 136 L (137-145) mmol/L Potassium 4.0 (3.4-5.0) mmol/L Chloride 105 (98-107) mmol/L Carbon Dioxide 23 (22-30) mmol/L Anion Gap 8 (4-12) mmol/L BUN 10 D (7-17) mg/dL Creatinine 0.69 L (0.7-1.0) mg/dL Estim Creat Clear Calc Not Reportable Estimated GFR > 60 (59 - ) Glucose 105 (65-110) mg/dL Calcium 8.6 (8.4-10.2) mg/dL Total Bilirubin 0.3 (0.2-1.3) mg/dL AST 34 (14-36) U/L ALT 27 (6-35) U/L Alkaline Phosphatase 79 (38-126) U/L Total Protein 7.6 (6.3-8.2) g/dL Albumin 4.0 (3.5-5.1) g/dL Urine Color Yellow (Yellow) Urine Appearance Clear (Clear) Urine pH 6.0 (5.0-9.0) Ur Specific [place] 1.025 (1.001-1.035) Urine Protein 1+ H (Negative) mg/dL Urine Glucose (UA) Negative (Negative) mg/dL Urine Ketones Trace H (Negative) mg/dL Ur Blood (Man) Negative (Negative) Urine Nitrate Negative (Negative) Urine Bilirubin Negative (Negative) Urine Urobilinogen 1.0 (<2.0) mg/dL Leukocyte Esterase Rfl Negative (Negative) NONA/UL Urine RBC 0-2 (0-2) /hpf Urine WBC 0-5 (0-3) /hpf Ur Squamous Epith Cells None seen (Few) /hpf Urine Bacteria None seen /hpf Urine Casts 0-2 POC Urine HCG, Qual Negative (Negative) Influenza A (RT-PCR) Negative (Negative) Influenza B (RT-PCR) Negative (Negative) RSV (RT-PCR) Negative (Negative) SARS-CoV-2 RNA (RT-PCR) Negative (Negative) Imaging Data Radiologist's impression: Impressions Chest X-Ray 04/14/25 15:15 IMPRESSION: Possible bronchitis. Vague opacity in the right upper lobe which may be focal pneumonia versus secretions filled bronchi. Follow-up advised. Head CT 04/14/25 15:23 IMPRESSION: No acute intracranial findings. Critical Care Time Critical Care Time Critical Care Time: No Discharge Plan Discharge Clinical Impression: Pneumonia, Vertigo Patient Disposition: Home Condition: Stable Instructions: Antibiotic Form, Vertigo (ED) Additional Instructions: Return if symptoms are worsening , call your family physician for appointment, take Tylenol as as needed for aches and pain, continue home medications. Patient Language: [place] Prescriptions: New amoxicillin 500 mg tablet 1,000 mg PO Q8H Qty: 42 0RF meclizine [Antivert] 25 mg tablet,chewable 25 mg PO TID Qty: 20 0RF ondansetron HCl 4 mg tablet 4 mg PO Q4H Qty: 10 0RF Rx Instructions: 1st dose 1-2 hr before radiation No Action fluoxetine [Prozac] 40 mg Capsule 40 mg PO DAILY lamotrigine 150 mg Tablet 150 mg PO DAILY trazodone 150 mg Tablet 150 mg PO HS levothyroxine 100 mcg Capsule 100 mcg PO DAILY Vraylar 1.5 mg Capsule 1.5 mg PO DAILY ibuprofen 800 mg tablet 800 mg PO TID PRN (Reason: pain) Qty: 15 0RF methylprednisolone [Medrol (Talat)] 4 mg tablets,dose pack See Rx Instructions .ROUTE .COMPLEX Qty: 21 0RF Rx Instructions: orally per package directions guaifenesin 200 mg tablet 200 mg PO Q6H PRN (Reason: cough) Qty: 30 0RF mupirocin 2 % ointment 1 applic topical BID 7 Days Qty: 22 0RF Follow-up/Referrals: Herbert Rodriguez MD [Primary Care Provider] - Stand Alone Forms: Work/School Release IP
[2025-04-14] MEDS: MECLIZINE HCL 25 MG TABLET PO (15:26)
[2025-04-14] MEDS: KETOROLAC 30 MG/ML VIAL (*BKC) IV PUSH (15:26)
[2025-04-14] MEDS: ONDANSETRON INJ 4 MG/2 ML VIAL IV PUSH (15:27)
== END 2025-04-14 17:57 | disposition home or self-care (01) ==
PROVIDERS: Emergency Medicine; Emergency Provider Emergency Medicine; PCP Internal Medicine
DX: J18.9 Pneumonia, unspecified organism (principal); R42 Dizziness and giddiness; Z20.822 Contact with and (suspected) exposure to COVID-19
CPT/HCPCS: 36415; 70450; 71045; 80053; 81001; 81025; 85025; 87637; 96374; 96375; 99284; A9270; J1885; J2405; J7030

== ENCOUNTER 2025-09-16 16:03 | Emergency (ER) | payer SELFPAY ==
--- NOTE | ~2025-09-16 | CT_ITS ---
Chandrika Frey EXAMINATION: CT abdomen pelvis w con COMPARISON: None HISTORY: abdominal abscess TECHNIQUE: Axial images were obtained through the abdomen, pelvis post administration of IV contrast. Oral contrast was also administered. Coronal reconstruction images were obtained from the axial views. CT scan performed using dose optimization techniques including the following automated exposure control; adjustment of mA and/or kV; use of iterative reconstruction technique. Automatic exposure control was used to reduce radiation dose. Permanent radiation dose record is archived to PACS. FINDINGS: CT abdomen: LUNG BASES: The lung bases are clear. The visualized portions of the heart and pericardium are unremarkable. LIVER: Moderate hepatic steatosis. SPLEEN: Unremarkable. KIDNEYS: Right Kidney: Unremarkable. No calculi. No hydronephrosis. Left Kidney: Unremarkable. No calculi. No hydronephrosis ADRENAL GLANDS: Unremarkable. PANCREAS: Unremarkable. GALLBLADDER/BILIARY: Post cholecystectomy. STOMACH AND ESOPHAGUS: Visualized stomach and esophagus within normal limits. BOWEL/MESENTERY: Moderate fecal content. No colitis or diverticulitis. Appendix not identified. No stranding surrounding the cecum. Mesentery normal. No thickened or dilated loops of small bowel. ADENOPATHY/RETROPERITONEUM: No lymphadenopathy. AORTA/VASCULATURE: Normal caliber aorta. FREE FLUID OR FREE AIR: Free fluid.. CT pelvis: SOLID ORGANS/REPRODUCTIVE: Unremarkable. BLADDER: Within normal limits. OSSEOUS STRUCTURES: No acute osseous abnormality.No suspicious lesions. OVERLYING SOFT TISSUES: There is stranding noted of the subcutaneous tissues overlying the pelvis consistent with probable cellulitis, there is no abscess identified. IMPRESSION: 1. No etiology identified to explain the patient's symptoms. Follow-up suggested if symptoms persist. Reviewed, dictated and finalized at location P. NESS MANAGEMENT MANAGER IMPRESSION: 1. No etiology identified to explain the patient's symptoms. Follow-up suggeste d if symptoms persist.
[2025-09-16 16:04] VITALS: BP 143/96; PULSE 109; RESP 18; TEMP 37.1; O2SAT 99
--- NOTE | 2025-09-16 18:02 | ECG_ITS ---
Test Date: 2025-09-16 18:19:38 Measurements Intervals Rex Rate: 72 P: -21 CA: 147 QRS: 46 QRSD: 96 T: 43 QT: 375 QTc: 411 Interpretive Statements SINUS RHYTHM WITH SINUS ARRHYTHMIA INCOMPLETE RIGHT BUNDLE BRANCH BLOCK DELAYED PRECORDIAL R/S TRANSITION LOW QRS VOLTAGE IN PRECORDIAL LEADS BASELINE ARTIFACT- I, II, III, AVR, AVL, AVF, V1-V2 BORDERLINE ECG Electronically Signed On 09-17-2025 09:07:03 LOAN REVIEWER by Santi Shanks D.O.
--- NOTE | 2025-09-16 18:04 | ED_ITS ---
HPI - Abdominal Pain General Chief Complaint: Abdominal Pain Stated Complaint: infection getting worse, N/V, fever Time Seen by Provider: 09/16/25 16:26 History of Present Illness HPI narrative: Patient is a 29-year-old female who presents the ER with abdominal pain associated with infection. She reports she has a history of staph infections and has been trying to treat an open on her abdomen with topical antibiotics. Patient reports over the last couple of days she has experienced nausea, vomiting, chills, abdominal cramping, fever, and generalized feeling of being unwell. She endorses a history Rakesh's disease, Graves disease, staph infections, appendectomy, and cholecystectomy. Patient denies any recent urinary symptoms, chest pain, or shortness of breath. She reports she has been taking Ibuprofen at home without much symptom relief. Related Data Home Medications ?Medication ?Instructions ?Recorded ?Confirmed ?Last Taken ?Type cariprazine 1.5 mg capsule 1.5 mg PO DAILY 11/30/19 U nknown History (Vraylar) fluoxetine 40 mg capsule (Prozac) 40 mg PO DAILY 11/30 Unknown History lamotrigine 150 mg tablet 150 mg PO DAILY 11/30/19 Un known History levothyroxine 100 mcg capsule 100 mcg PO DAILY 0 Unknown History trazodone 150 mg tablet 150 mg PO HS 11/30/19 Unkno wn History Allergies Allergy/AdvReac Type Severity Reaction Status Date / Time No Known Allergies Allergy Unknown Verified 09/16/25 16:07 Review of Systems 2 Review of Systems: All systems reviewed & are unremarkable except as noted in HPI and below PMFSH Past Medical History Medical History Anxiety Depression PID (pelvic inflammatory disease) Hypothyroidism DVT (deep venous thrombosis) Surgical History Surgical History History of cataract surgery History of tubal ligation History of cholecystectomy Hx of appendectomy Family History Family History Other Family history of seizure disorder Social History Social History Smoking status: Former smoker Gender identity (if verbalized by the patient): Female Exam 2 Narrative: GENERAL: Well appearing, obese, non-toxic, in no acute distress. HEAD: Normocephalic, atraumatic. NECK: Supple. No adenopathy, no masses. RESPIRATORY: Airway patent, respirations nonlabored. Clear to auscultation bilaterally, no rales, rhonchi, wheezing. CARDIOVASCULAR: tachycardia without murmurs, rubs, or gallops. Peripheral pulses 2+ and equal bilaterally. ABDOMINAL: Soft, tenderness with palpation to bilateral lower abdomen, nondistended, no hepatosplenomegaly. Normoactive BS. Approximately quarter- sized palpable open lesion to RLQ, significant generalized swelling/redness/warmth to surround area (does not travel up to umbilicus) MUSCULOSKELETAL: Moves all extremities. Strength/ROM intact without gross deformities. SKIN: Warm, dry, normal color. No rashes. NEURO: A&O X3. Speech clear. Cranial nerves II-XII intact. No ataxic movements. PSYCHIATRIC: Appropriate mood and affect. Normal interaction. Course Vital Signs Vital signs: Vital Signs Temperature 37.1 C 09/16/25 16:04 Pulse Rate 109 H 09/16/25 16:04 Respiratory Rate 18 09/16/25 16:04 Blood Pressure 143/96 H 09/16/25 16:04 Pulse Oximetry 99 09/16/25 16:04 Oxygen Delivery Room Air 09/16/25 16:04 Temperature 37.1 C 09/16/25 16:04 Pulse Rate 109 H 09/16/25 16:04 Respiratory Rate 18 09/16/25 16:04 Blood Pressure 143/96 H 09/16/25 16:04 Pulse Oximetry 99 09/16/25 16:04 Oxygen Delivery Room Air 09/16/25 16:04 [facility] Narrative Medical decision making narrative: Patient is a 29-year-old female who presents the ER with abdominal pain associated with infection. She reports she has a history of staph infections and has been trying to treat an open on her abdomen with topical antibiotics. Patient reports over the last couple of days she has experienced nausea, vomiting, chills, abdominal cramping, fever, and generalized feeling of being unwell. She endorses a history Rakesh's disease, Graves disease, staph infections, appendectomy, and cholecystectomy. Patient denies any recent urinary symptoms, chest pain, or shortness of breath. She reports she has been taking Ibuprofen at home without much symptom relief. Labs Ordered: CBC, CMP, UA, TSH, PTT, INR, CRP, blood culture Imaging Ordered: CT abdomen pelvis Medications Ordered: Vanco IV, 3 L normal saline IV bolus, morphine 4 mg IV, [place] PO Results: Pt's CT scan indicates CT abdomen: LUNG BASES: The lung bases are clear. The visualized portions of the heart and pericardium are unremarkable. LIVER: Moderate hepatic steatosis. SPLEEN: Unremarkable. KIDNEYS: Right Kidney: Unremarkable. No calculi. No hydronephrosis. Left Kidney: Unremarkable. No calculi. No hydronephrosis ADRENAL GLANDS: Unremarkable. PANCREAS: Unremarkable. GALLBLADDER/BILIARY: Post cholecystectomy. STOMACH AND ESOPHAGUS: Visualized stomach and esophagus within normal limits. BOWEL/MESENTERY: Moderate fecal content. No colitis or diverticulitis. Appendix not identified. No stranding surrounding the cecum. Mesentery normal. No thickened or dilated loops of small bowel. ADENOPATHY/RETROPERITONEUM: No lymphadenopathy. AORTA/VASCULATURE: Normal caliber aorta. FREE FLUID OR FREE AIR: Free fluid.. CT pelvis: SOLID ORGANS/REPRODUCTIVE: Unremarkable. BLADDER: Within normal limits. OSSEOUS STRUCTURES: No acute osseous abnormality.No suspicious lesions. OVERLYING SOFT TISSUES: There is stranding noted of the subcutaneous tissues overlying the pelvis consistent with probable cellulitis, there is no abscess identified. Diagnosis: cellulitis, hypothyroidism Patient Education/Shared MDM: Results of lab work and imaging shared with patient. She endorses improvement of symptoms following medication administration, but is requesting an additional dose of pain medication. She reports she does not currently have a primary care provider and is not taking her thyroid medication. Her medical chart indicates in the past she has been prescribed levothyroxine 100 mcg daily. Patient reports she does not have insurance right now, which is why she has not gone back to her primary care provider. She will be provided with the name of a new primary care provider, although she reports she can still follow-up with her previous PCP. Patient strongly advised to maintain hydration status upon discharge, complete her full dose of antibiotics, and restart her levothyroxine. She will be discharged home with a prescription for Keflex and levothyroxine. Strict return precautions provided. Patient verbalized understanding and is in agreement with plan. Vital signs stable at time of discharge. All questions answered. Differential Diagnosis Differential Diagnosis: cellulitis, abscess, urinary tract infection, sepsis, hypothyroidism, hyperthyroidism Lab Data MDM Lab Attestation statement: I personally reviewed the patient's lab results. 09/16/25 18:22 09/16/25 18:22 Labs: Lab Results 09/16/25 09/16/25 09/16/25 Range/Units 18:22 18:29 19:06 WBC 6.5 (4.5-10.0) K/mm3 RBC 4.29 (4.2-5.4) M/mm3 Hgb 12.4 (12.0-15.0) g/dL Hct 36.8 L (37.0-47.0) % MCV 85.8 (80-100) fl MCH 28.9 (26-34) pg MCHC 33.7 (32-36) g/dl RDW 13.2 (11.5-14.5) % Plt Count 298 (150-375) k/mm3 MPV 10.2 (7.4-10.4) fl Immature Gran % (Auto) 0.3 (0-0.5) % Neut % (Auto) 62.1 (45.5-73.1) % Lymph % (Auto) 30.9 (18.3-44.2) % [place] % (Auto) 4.9 (2.6-8.5) % Eos % (Auto) 1.2 (0-4.4) % Baso % (Auto) 0.6 (0.2-1.2) % Lymph # (Auto) 2.02 (0.9-3.2) K/mm3 [place] # (Auto) 0.3 (0.1-0.6) K/mm3 Eos # (Auto) 0.1 (0-0.3) K/mm3 Baso # (Auto) 0.0 (0.0-0.1) K/mm3 Abs Immat Gran (auto) 0.02 (0.00-0.031) K/mm3 Absolute Neuts (auto) 4.1 (1.3-6.7) K/mm3 Absolute Nucleated RBC 0.000 (0.0-0.012) K/mm3 Nucleated RBC % 0.0 (0.0-0.2) % PT 13.3 (11.1-14.7) Seconds INR 1.0 APTT 26.8 (22.3-36.8) Seconds Sodium 136 L (137-145) mmol/L Potassium 3.9 (3.4-5.0) mmol/L Chloride 110 H (98-107) mmol/L Carbon Dioxide 21 L (22-30) mmol/L Anion Gap 5 (4-12) mmol/L BUN 12 (7-17) mg/dL Creatinine 0.64 L (0.7-1.0) mg/dL Estim Creat Clear Calc Not Reportable Estimated GFR > 60 (59 - ) Glucose 87 (65-110) mg/dL Lactic Acid 0.7 (0.7-2.0) mmol/L Calcium 9.1 (8.4-10.2) mg/dL Total Bilirubin 0.4 (0.2-1.3) mg/dL AST 32 (14-36) U/L ALT 32 (6-35) U/L Alkaline Phosphatase 92 (38-126) U/L C-Reactive Protein 0.7 (<1.0) mg/dL Total Protein 7.8 (6.3-8.2) g/dL Albumin 4.1 (3.5-5.1) g/dL TSH (Reflex) 9.110 H (0.465-4.68) uIU/mL Free T4 0.91 (0.78-2.19) ng/dL Total T3 1.44 (0.82-1.58) NG/ML Urine Color Yellow (Yellow) Urine Appearance Clear (Clear) Urine pH 5.5 (5.0-9.0) Ur Specific [place] 1.019 (1.001-1.035) Urine Protein Trace (Negative) mg/dL Urine Glucose (UA) Negative (Negative) mg/dL Urine Ketones Trace H (Negative) mg/dL Ur Blood (Man) Negative (Negative) Urine Nitrate Negative (Negative) Urine Bilirubin Negative (Negative) Urine Urobilinogen 1.0 (<2.0) mg/dL Leukocyte Esterase Rfl Negative (Negative) NONA/UL Urine RBC 0-2 (0-2) /hpf Urine WBC 0-5 (0-3) /hpf Ur Squamous Epith Cells None seen (Few) /hpf Urine Bacteria None seen /hpf Urine Casts 0-2 POC Urine HCG, Qual Negative (Negative) Imaging Data Attestation: I personally reviewed and interpreted this imaging study as follows: Radiologist's impression: ITS Impressions Abdomen/Pelvis CT 09/16/25 19:33 IMPRESSION: 1. No etiology identified to explain the patient's symptoms. Follow-up suggested if symptoms persist. Discharge Plan Discharge Clinical Impression: Cellulitis, Dehydration, mild, Hypothyroidism, History of Graves' disease, History of Rakesh thyroiditis, Nausea & vomiting Patient Disposition: Home Condition: Stable Instructions: Antibiotic Form, Hypothyroidism (ED) Additional Instructions: Please return to the ER with any worsening symptoms. Follow-up with primary care provider as soon as possible for further evaluation of your thyroid and re- evaluation of your wound. Take all medications as prescribed, including regularly scheduled medications. Complete your full dose of antibiotics. You may take Tylenol and/or ibuprofen for pain control at home. Patient Language: Russian Prescriptions: New levothyroxine 100 mcg capsule 100 mcg PO DAILY Qty: 30 0RF cephalexin 750 mg capsule 750 mg PO Q8H 10 Days Qty: 30 0RF ondansetron 4 mg tablet,disintegrating 4 mg PO Q8H Qty: 30 0RF No Action fluoxetine [Prozac] 40 mg Capsule 40 mg PO DAILY lamotrigine 150 mg Tablet 150 mg PO DAILY trazodone 150 mg Tablet 150 mg PO HS levothyroxine 100 mcg Capsule 100 mcg PO DAILY Vraylar 1.5 mg Capsule 1.5 mg PO DAILY ibuprofen 800 mg tablet 800 mg PO TID PRN (Reason: pain) Qty: 15 0RF amoxicillin 500 mg tablet 1,000 mg PO Q8H Qty: 42 0RF meclizine [Antivert] 25 mg tablet,chewable 25 mg PO TID Qty: 20 0RF ondansetron HCl 4 mg tablet 4 mg PO Q4H Qty: 10 0RF Rx Instructions: 1st dose 1-2 hr before radiation methylprednisolone [Medrol (Talat)] 4 mg tablets,dose pack See Rx Instructions .ROUTE .COMPLEX Qty: 21 0RF Rx Instructions: orally per package directions guaifenesin 200 mg tablet 200 mg PO Q6H PRN (Reason: cough) Qty: 30 0RF mupirocin 2 % ointment 1 applic topical BID 7 Days Qty: 22 0RF Follow-up/Referrals: PHYSICIAN,ACOUSTICAL MATERIAL WORKER [Primary Care Provider, Internal Medicine] Elier Vu MD [Physician, Family Practice] Stand Alone Forms: Work/School Release IP Time of Disposition: 22:24
[2025-09-16 18:31] LABS: Hematocrit 36.8 % (37.0-47.0); Hemoglobin 12.4 g/dL (12.0-15.0); Immature Granulocyte Percent A 0.3 % (0-0.5); Lymphocytes Absolute Auto 2.02 K/mm3 (0.9-3.2); Mean Corpuscular HGB Conc 33.7 g/dl (32-36); Mean Corpuscular Hemoglobin 28.9 pg (26-34); Mean Corpuscular Volume 85.8 fl (80-100); Nucleated Red Blood Cells Absolute Auto 0.000 K/mm3 (0.0-0.012); Nucleated Red Blood Cells Perc 0.0 % (0.0-0.2); Platelet Count Result 298 k/mm3 (150-375); Red Blood Count 4.29 M/mm3 (4.2-5.4); White Blood Count 6.5 K/mm3 (4.5-10.0)
[2025-09-16] MEDS: SODIUM CHLORIDE 0.9% IV 1,000 ML 999 ML IV CONT ×3 (18:36→18:37)
[2025-09-16] MEDS: SODIUM CHLORIDE 0.9% IV 200 ML 999 ML IV CONT (18:37)
[2025-09-16] MEDS: MORPHINE SULFATE (*CRX) 4 MG/ML INJ IV PUSH ×2 (18:37→21:35)
[2025-09-16 18:39] LABS: Add Urine Microscopic? YES; Appearance Urine Clear (Clear); Glucose Urine UA Negative (Negative); Leukocyte Esterase Ur Negative LEU/UL (Negative); Nitrate Urine Negative (Negative); Non Pathogenic Casts 0-2; Specific Grav Ur 1.019 (1.001-1.035)
[2025-09-16 18:47] LABS: INR 1.0; Partial Thromboplastin Time 26.8 Seconds (22.3-36.8); Prothrombin Time 13.3 Seconds (11.1-14.7)
[2025-09-16 18:51] LABS: Alanine Aminotransferase 32 U/L (6-35); Albumin Level 4.1 g/dL (3.5-5.1); Alkaline Phosphatase 92 U/L (38-126); Anion Gap 5 mmol/L (4-12); Aspartate Amino Transferase 32 U/L (14-36); Bilirubin,Total 0.4 mg/dL (0.2-1.3); Blood Urea Nitrogen 12 mg/dL (7-17); CRP 0.7 mg/dL (<1.0); Calcium 9.1 mg/dL (8.4-10.2); Carbon Dioxide 21 mmol/L (22-30); Chloride 110 mmol/L (98-107); Estimated Glomerular Filt Rate > 60; Glucose 87 mg/dL (65-110); Potassium 3.9 mmol/L (3.4-5.0); Sodium 136 mmol/L (137-145); Total Protein 7.8 g/dL (6.3-8.2)
[2025-09-16 19:08] LABS: BEDSIDEPREGUCG Negative (Negative)
[2025-09-16 19:39] LABS: Thyroid Stimulating Hormone Reflex 9.110 uIU/mL (0.465-4.68)
[2025-09-16] MEDS: VANCOMYCIN 1,250 MG/NS 250 ML 1,250 MG/250 ML BAG 166.67 MG IVPB ×2 (20:00→21:35)
[2025-09-16 20:09] LABS: Free T4 Free Thyroxine Reflex 0.91 ng/dL (0.78-2.19)
[2025-09-16 20:52] LABS: Total Triiodothyronine (T3) 1.44 NG/ML (0.82-1.58)
[2025-09-16] MEDS: ONDANSETRON INJ 4 MG/2 ML VIAL IV PUSH (21:34)
== END 2025-09-16 23:18 | disposition home or self-care (01) ==
PROVIDERS: Emergency Provider Registered Nurse
DX: L03.311 Cellulitis of abdominal wall (principal); E86.0 Dehydration; R11.2 Nausea with vomiting, unspecified; E06.3 Autoimmune thyroiditis; E05.00 Thyrotoxicosis with diffuse goiter without thyrotoxic crisis or storm; Z90.49 Acquired absence of other specified parts of digestive tract; F41.9 Anxiety disorder, unspecified; F32.A Depression, unspecified; Z86.718 Personal history of other venous thrombosis and embolism; Z87.891 Personal history of nicotine dependence; Z79.899 Other long term (current) drug therapy; I45.10 Unspecified right bundle-branch block; K76.0 Fatty (change of) liver, not elsewhere classified
CPT/HCPCS: 36415; 74177; 80053; 81001; 81025; 83605; 84439; 84443; 84480; 85025; 85610; 85730; 86140; 87070; 87075; 93005; 96361; 96365; 96366; 96375; 96376; 99284; J2270; J2405; J3373; J7030; Q9967